=== PATIENT | male | born 1975 | race Asian ===

== ENCOUNTER → 2023-05-26 11:54 | Outpatient (REF) | payer OTHER, SELFPAY | LOC: HWRAD 11:54 | PROVIDERS: ATTENDING PHYSICIAN Urology; FAMILY PHYSICIAN Family Medicine | DX: N30.10 Interstitial cystitis (chronic) without hematuria (principal); R10.9 Unspecified abdominal pain | CPT/HCPCS: 74176 ==

== ENCOUNTER 2023-06-09 13:27 | Emergency (ER) | payer OTHER, SELFPAY ==
[2023-06-09 13:30] VITALS: BP 128/80
[2023-06-09 13:55] LABS: Urine Albumin Trace (Neg - Trace); Urine Bilirubin 1+ (Negative); Urine Character Clear (Clear); Urine Color Yellow; Urine Glucose Negative (Negative); Urine Ketone Negative (Negative); Urine Leukocyte Trace (Negative); Urine Nitrite Negative (Negative); Urine Occult Blood Negative (Negative); Urine Specific Gravity 1.025 (<1.030); Urine Urobilinogen Negative (Neg - 1+)
[2023-06-09 13:57] LABS: % Basophils 0.7 % (0-2); % Eosinophils 3.5 % (0-6); % Immature Granulocytes 0.4 % (0-0.5); % Lymphocytes 24.4 % (20.5-51.1); % Monocytes 6.2 % (1.7-9.3); % Neutrophils 64.8 % (42.2-75.2); Absolute Basophils 0.1 10^3/uL (0-0.2); Absolute Eosinophils 0.3 10^3/uL (0-0.7); Absolute Lymphocytes 1.7 10^3/uL (1.2-3.4); Absolute Monocytes 0.4 10^3/uL (0.1-0.6); Absolute Neutrophils 4.6 10^3/uL (1.4-6.5); Hematocrit 42.3 % (39.0-52.0); Hemoglobin 14.5 g/dL (13.0-18.0); Mean Corp Hgb Conc. 34.3 g/dL (33.0-37.0); Mean Corpuscular Hgb 29.7 pg (27.0-31.0); Mean Corpuscular Volume 86.5 fL (80.0-94.0); Nucleated Red Blood Cells % 0 % (-); Platelet Count 182 10^3/uL (130-400); Red Blood Cell Count 4.89 10^6/uL (4.70-6.10); Red Cell Dist. Width 12.7 % (11.5-14.5); White Blood Cell Count 7.1 10^3/uL (4.8-10.8)
[2023-06-09 14:09] LABS: ALT (SGPT) 22 U/L (0-50); AST (SGOT) 18 U/L (17-59); Albumin 4.4 g/dl (3.5-5.0); Alkaline Phosphatase 68 U/L (38-126); Blood Urea Nitrogen 16 mg/dl (9-20); Calcium 9.2 mg/dl (8.4-10.2); Carbon Dioxide 26 mmol/L (22-30); Chloride 106 mmol/L (98-107); Glucose 109 mg/dl (70-99); Sodium 137 mmol/L (135-145); Total Bilirubin 0.5 mg/dl (0.2-1.3); Total Protein 7.4 g/dl (6.3-8.2); eGFR > 60.00
[2023-06-09 14:19] LABS: Urine Mucus Many
[2023-06-09 14:21] LABS: Urine Amorphous Seen; Urine Granular Cast 0-2 /LPF (0); Urine Red Blood Cell 0-2 /HPF (0-2); Urine White Cell 0-2 /HPF (0-5)
--- NOTE | 2023-06-09 14:26 | ED.GENMED ---
History of Present Illness
<LAINE Colin - Last Filed: 06/16/23 16:14>
General
Chief Complaint: Flank Pain
Source: patient
Exam Limitations: none
Time Seen by Provider: 06/09/23 14:18
Nursing documentation reviewed up to this point in time: agreed with
Travel History
Have you had any contact with someone who has COVID-19?: No
Do you have any symptoms of coronavirus? Fever > 100 degrees, chills, cough, shortness of breath, sore throat, loss of taste or smell, muscle aches, or headache?: No
History of Present Illness
History of Present Illness:
Patient is a 48-year-old male who presents to the ER for evaluation of bilateral flank pain left greater than right. Patient reports pain started 3 to 4 days ago. He has chronic frequent urination and is on chronic Flomax and Myrbetriq.
He denies any injury. Denies any pain with movement. He reports pain has been constant there is able to sleep with pain. He denies any nausea vomiting. Patient is followed by [facility]. He reports he had imaging for abdominal pain
several weeks ago. I was able to view CAT scan which was done May 25 which was negative for significant acute abnormality patient does have tiny bilateral nonobstructing renal calculi measuring up to 2 mm but there is no hydronephrosis normal
liver spleen and adrenal glands along with normal pancreas and gallbladder.
Patient denies any injury patient movement does not make it worse.
Review of Systems
<LAINE Colin - Last Filed: 06/16/23 16:14>
Review of Systems
Allergies reviewed?: Yes
All Other Systems: ROS reviewed and negative except as documented in HPI and ROS
Constitutional: Reports no symptoms; Denies fever
Respiratory: Reports no symptoms
Cardiac: Reports no symptoms
ABD/GI: Reports no symptoms; Denies abdominal pain, nausea or vomiting
: Reports flank pain; Denies dysuria, frequency, incontinence or difficulty voiding
Musculoskeletal: Reports back pain
Skin: Reports no symptoms
Neurological: Reports no symptoms
Hematologic/Lymphatic: Reports no symptoms
Psychiatric: Reports no symptoms
Phy Exam
<LAINE Colin - Last Filed: 06/16/23 16:14>
General Physical Exam
General Presentation: no apparent distress
General age: appears stated age
General Skin: warm and dry
General Habitus: normal
General Mental: alert
General Hydration: appears well hydrated
Gastrointestinal Exam
Gastrointestinal Exam: normal bowel sounds, non tender and soft
Neurological Exam
Neurological Exam: alert and oriented x3
Musculoskeletal Exam
Musculoskeletal Exam: other (non tender to back )
Skin Exam
Skin Exam: normal color and warm/dry
Psychiatric Exam
Psychiatric Exam: normal mood/affect
Course
<LAINE Colin - Last Filed: 06/16/23 16:14>
Orders/Labs/Results
Orders:
Orders
06/09/23 13:40
CBC/With Diff [Complete Blood Count/With Diff] Urgent
CMP [Comprehensive Metabolic Panel] Urgent
Urinalysis Reflex To Culture Urgent
Date Specimen was Collected: 06/09/23
Time Specimen was Collected: 13:33
Urine Microscopic Reflex Cult Urgent
06/09/23 15:31
US Renal Only W/O Bladder Urgent
Comment:
Reason For Exam: b/l flank pain left greater then right
Abnormal Lab Results
06/09/23
13:40
MPV 12.0 H fL
(7.4-10.4)
Glucose 109 H mg/dl
(70-99)
Urine Bilirubin 1+ A
(Negative)
Leukocyte Esterase Rfl Trace A
(Negative)
06/09/23 13:40
06/09/23 13:40
Vital Signs
Initial and Last Documented VS:
Initial Vital Signs
Temp Pulse Resp BP Pulse Ox
97.9 F 65 17 128/80 100
06/09/23 13:30 06/09/23 13:30 06/09/23 13:30 06/09/23 13:30 06/09/23 13:30
Last Documented Vital Signs
Temp Pulse Resp BP Pulse Ox
97.9 F 65 17 128/80 100
06/09/23 13:30 06/09/23 13:30 06/09/23 13:30 06/09/23 13:30 06/09/23 13:30
Dye Winch Operator consulted with Physician
Dye Winch Operator consulted with physician?: Yes
Name of Physician Consulted: Cristobal
<Tony Jain MD - Last Filed: 06/10/23 12:31>
Orders/Labs/Results
Orders:
Orders
06/09/23 13:40
CBC/With Diff [Complete Blood Count/With Diff] Urgent
CMP [Comprehensive Metabolic Panel] Urgent
Urinalysis Reflex To Culture Urgent
Date Specimen was Collected: 06/09/23
Time Specimen was Collected: 13:33
Urine Microscopic Reflex Cult Urgent
06/09/23 15:31
US Renal Only W/O Bladder Urgent
Comment:
Reason For Exam: b/l flank pain left greater then right
Abnormal Lab Results
06/09/23
13:40
MPV 12.0 H fL
(7.4-10.4)
Glucose 109 H mg/dl
(70-99)
Urine Bilirubin 1+ A
(Negative)
Leukocyte Esterase Rfl Trace A
(Negative)
06/09/23 13:40
06/09/23 13:40
Vital Signs
Initial and Last Documented VS:
Initial Vital Signs
Temp Pulse Resp BP Pulse Ox
97.9 F 65 17 128/80 100
06/09/23 13:30 06/09/23 13:30 06/09/23 13:30 06/09/23 13:30 06/09/23 13:30
Last Documented Vital Signs
Temp Pulse Resp BP Pulse Ox
97.9 F 65 17 128/80 100
06/09/23 13:30 06/09/23 13:30 06/09/23 13:30 06/09/23 13:30 06/09/23 13:30
<LAINE Colin - Last Filed: 06/16/23 16:14>
MDM/Problems Addressed
MDM/Problems Addressed:
Patient present with bilateral flank pain left greater than right for the past several days recent CAT scan reviewed which shows tiny bilateral obstructive renal calculi measuring up to 2 mm no hydro. Patient is in no acute distress abdomen soft
but does not make this worse. Patient denies any fever or chills and arrives afebrile with a normal white count stable hemoglobin normal kidney function and negative urinalysis. Case reviewed with Dr. Jain will check Renal US.
<LAINE Colin - Last Filed: 06/16/23 16:14>
*Critical Care Note
Total Time (30-74mins, 75-104mins- exclusive of procedures): Not Applicable
<Tony Jain MD - Last Filed: 06/10/23 12:31>
Update Note
Update Note:
Renal US: no acute findings. Otherwise, unremarkable workup, including blood work and UA. Pt will be discharged home with recommendation to f/u with his PCP/urologist as outpatient, or return to ED with worsening symptoms.
Script for toradol given for symptomatic treatment.
Discussed with patient's urologist () via [id number]. Pt already has an upcoming appt with her.
ED Attending Note
<LAINE Colin - Last Filed: 06/16/23 16:14>
-
Portions of this chart may have been created with voice recognition software.� Occasional wrong word or��sound alike� substitutions may have occurred due to the inherent limitations of voice recognition software.
Discharge Plan
Departure
Patient Disposition: Home (Routine Discharge)
Date of Disposition: 06/09/23
Time of Disposition: 16:34
Patient with high blood pressure during this ER visit?: Yes
Discharge Problem:
Flank pain
Instructions: Flank Pain (DC)
Prescriptions:
New
ketorolac 10 mg tablet
10 mg PO Q8H PRN (Reason: Pain) Qty: 10 0RF
Rx Instructions:
maximum total duration of 5 days from all oral, intranasal, or parenteral formulations
Referrals:
Jose A Stone MD [Family Provider] -
Activity Restrictions/Additional Instructions:
As discussed, please follow-up with your primary care physician and/or urologist with any further concerns.
Interventions
Interventions:
*Risk Screen - Suicide Last Done: 06/09/23 13:30
*General Assessment Last Done: 06/09/23 13:30
*Neglect/Abuse Screening Last Done: 06/09/23 13:30
ED- Fall Risk Assessment Last Done: 06/09/23 17:28
*ED COVID-19 Vaccine History Last Done: 06/09/23 17:28
*Nursing Disposition Last Done: 06/09/23 17:28
OA-Vdzkvf-Noqhqyjazo Assessment Last Done: 06/09/23 16:35
ED-Male Genitourinary Assessment Last Done: 06/09/23 16:35
Discharge Date and Time
Discharge Date/Time: 06/09/23 17:28
Print Language: ECUADOREAN
== END 2023-06-09 17:28 | disposition home or self-care (01) ==
LOC: EMR 13:27
PROVIDERS: EMERGENCY PHYSICIAN Emergency Medicine; FAMILY PHYSICIAN Family Medicine
DX: R10.9 Unspecified abdominal pain (principal); R03.0 Elevated blood-pressure reading, without diagnosis of hypertension
CPT/HCPCS: 99284; 76775; 80053; 81003; 81015; 85025

== ENCOUNTER 2023-09-09 14:52 | Emergency (ER) | payer OTHER, SELFPAY ==
[2023-09-09 15:12] VITALS: BP 138/82
[2023-09-09] MEDS: TORADOL 30 MG IM (17:44)
[2023-09-09 18:14] LABS: Urine Albumin Negative (Neg - Trace); Urine Bilirubin Negative (Negative); Urine Character Clear (Clear); Urine Color Yellow; Urine Glucose Negative (Negative); Urine Ketone Negative (Negative); Urine Leukocyte Negative (Negative); Urine Nitrite Negative (Negative); Urine Occult Blood Negative (Negative); Urine Urobilinogen Negative (Neg - 1+)
--- NOTE | 2023-09-09 18:55 | ED.GENMED ---
History of Present Illness
General
Chief Complaint: Male Genito-Urinary Symptoms
Source: patient
Exam Limitations: none
Time Seen by Provider: 09/09/23 17:26
History of Present Illness
History of Present Illness:
Patient complaining of days of left testicle pain. Has not noted whether they are swelling or not. Had some pain there last week that lasted a few days and resolved. No urinary symptoms no penile discharge. No flank or back pain. No fever.
Does note some nausea at times related to the pain.
Past History
Past History
ED Past Medical History: None
ED Past Surgical History: Orthopedic
Review of Systems
Review of Systems
All Other Systems: Not applicable
Constitutional: Denies fever or chills
Phy Exam
Physical Exam
Physical Exam:
GENERAL: Alert and oriented in no apparent distress
EYE: Orbits normal.
CARDIAC: Regular rate and rhythm without any obvious murmurs.
LUNGS: Clear breath sounds,normal
ABDOMEN: Soft, without focal tenderness or distention
: Scrotum and testicles grossly normal. Bilateral cremasteric reflexes. No obvious tenderness to the testicle left or right. Some mild epididymal tenderness. No hernia bilaterally. No adenopathy. No penile discharge or ulceration
NEUROLOGICAL: Alert and oriented , grossly non-focal
SKIN: Warm and dry, no rash or lesion, no discoloration, skin intact.
PSYCH: Normal and appropriate interaction.
Course
Orders/Labs/Results
Orders:
Orders
09/09/23
US Renal Only W/O Bladder Urgent
Reason For Exam: LT SIDE PAIN
09/09/23 15:56
US Scrotum Urgent
Comment:
Reason For Exam: l sided pain
09/09/23 17:39
Ketorolac [Toradol] 30 mg IM NOW STA
09/09/23 18:07
Urinalysis Reflex To Culture Urgent
Date Specimen was Collected: 09/09/23
Time Specimen was Collected: 17:42
Vital Signs
Initial and Last Documented VS:
Initial Vital Signs
Temp Pulse Resp BP Pulse Ox
98.2 F 65 16 138/82 98
09/09/23 15:12 09/09/23 15:12 09/09/23 15:12 09/09/23 15:12 09/09/23 15:12
Last Documented Vital Signs
Temp Pulse Resp BP Pulse Ox
98.2 F 65 16 138/82 98
09/09/23 15:12 09/09/23 15:12 09/09/23 15:12 09/09/23 15:12 09/09/23 15:12
MDM/Problems Addressed
Differential Diagnosis Includes:
Left testicle pain for days. Highly doubt torsion. Nothing to support this clinically. Doubt kidney stone with no flank or back pain and negative urinalysis. Possible epididymitis. Workup in progress
*Radiology
Radiology exam reviewed: radiology read reviewed (Negative ultrasounds)
*Pulse Oximetry
Patient hypoxic: no
*Critical Care Note
Total Time (30-74mins, 75-104mins- exclusive of procedures): Not Applicable
Update Note
Update Note:
I find no serious explanation for patient's left testicle pain. Testicles are clinically are normal. Normal cremasterics. No hernia. No left lower quadrant tenderness. Highly doubt abdominal issue. Ultrasounds negative. Discussed at length
with the patient. Feel treatment at this time is anti-inflammatories testicular elevation and close follow-up. He has follow-up with urology this Tuesday. We did discuss antibiotics which patient would prefer although not totally convinced it is
necessary. Theoretically this could be a mild prostatitis although unlikely. We will give a trial of antibiotics to follow-up
ED Attending Note
-
Portions of this chart may have been created with voice recognition software.� Occasional wrong word or��sound alike� substitutions may have occurred due to the inherent limitations of voice recognition software.
Discharge Plan
Departure
Patient Disposition: Home (Routine Discharge)
Date of Disposition: 09/09/23
Time of Disposition: 20:12
Patient with high blood pressure during this ER visit?: Yes
Discharge Problem:
Left testicle pain
Instructions: BLOOD PRESSURE
Prescriptions:
New
amoxicillin-pot clavulanate 875-125 mg tablet
1 tab PO BID Qty: 14 0RF
No Action
ketorolac 10 mg tablet
10 mg PO Q8H PRN (Reason: Pain) Qty: 10 0RF
Rx Instructions:
maximum total duration of 5 days from all oral, intranasal, or parenteral formulations
Referrals:
UNKNOWN - PT DOES,NOT KNOW [Family Provider] -
Activity Restrictions/Additional Instructions:
Follow-up with your urologist this coming Tuesday
Return sooner with increased pain, testicle swelling, redness, fever, abdominal pain or any other concerning symptoms
Interventions
Interventions:
*Risk Screen - Suicide Last Done: 09/09/23 15:12
*General Assessment Last Done: 09/09/23 15:12
*Neglect/Abuse Screening Last Done: 09/09/23 15:12
ED-Male Genitourinary Assessment Last Done: 09/09/23 17:27
Discharge Date and Time
Print Language: KINYARWAN[place]
[2023-09-09 20:20] VITALS: BP 132/85
== END 2023-09-09 20:20 | disposition home or self-care (01) ==
LOC: EMR 14:52
PROVIDERS: EMERGENCY PHYSICIAN Emergency Medicine
DX: N50.812 Left testicular pain (principal)
CPT/HCPCS: 99284; 96372; 76775; 76870; 81003; 93976

== ENCOUNTER → 2024-03-20 07:02 | Outpatient (REF) | payer OTHER, SELFPAY | LOC: RAD 07:02 | PROVIDERS: ATTENDING PHYSICIAN Student in an Organized Health Care Education/Training Program | DX: R07.0 Pain in throat (principal) | CPT/HCPCS: 76536 ==

== ENCOUNTER → 2024-03-28 09:37 | Outpatient (REF) | payer OTHER, SELFPAY | LOC: RAD 09:37 | PROVIDERS: ATTENDING PHYSICIAN Student in an Organized Health Care Education/Training Program; REFERRING PHYSICIAN Internal Medicine | DX: R11.2 Nausea with vomiting, unspecified (principal) | CPT/HCPCS: 74019 ==

== ENCOUNTER 2024-04-05 06:25 | Day surgery (SDC) | payer OTHER, SELFPAY | END 2024-04-05 15:36 | disposition home or self-care (01) | LOC: GI 06:25 | PROVIDERS: ATTENDING PHYSICIAN Internal Medicine | DX: R11.2 Nausea with vomiting, unspecified (principal); K29.50 Unspecified chronic gastritis without bleeding | CPT/HCPCS: 43239; 88305; 88342 ==